=== PATIENT | male | born 1975 | race Caucasian/White ===

== ENCOUNTER 2016-10-22 20:05 | Emergency (ER) | payer OTHER ==
[2016-10-22] MEDS ORDERED: HYDROMORPHONE HCL 2 MG/ML SYRINGE ONE (21:20)
== END 2016-10-22 21:52 | disposition home or self-care (01) ==
LOC: ED 20:05
DX: M54.2 Cervicalgia (principal); E78.5 Hyperlipidemia, unspecified; I10 Essential (primary) hypertension; E11.9 Type 2 diabetes mellitus without complications; F17.210 Nicotine dependence, cigarettes, uncomplicated; Z79.84 Long term (current) use of oral hypoglycemic drugs
CPT/HCPCS: 99282; 96372; 99283; J1170